=== PATIENT | female | born 2000 ===

== ENCOUNTER 2021-04-09 21:08 | Observation (INO) ==
[2021-04-09 23:12] LABS: ABS Lymphocytes 0.7 10^3/ul (1.0-4.8); ABS Monocytes 0.6 10^3/ul (0-0.8); ABS Neutrophils 12.1 10^3/ul (1.5-7.7); Eosinophil % 0.1 %; Hematocrit 40 % (35-47); Hemoglobin 13.6 g/dL (12.0-16.0); Lymphocyte % 5.3 %; Mean Corpuscular HGB Conc 34 g/dL (31-36); Mean Corpuscular Hemoglobin 30 pg (27-31); Mean Corpuscular Volume 88 fL (80-97); Mean Platelet Volume 8.3 fL (7.4-10.4); Nucleated Red Blood Cells % 0.1; Platelet Count 242 10^3/uL (150-450); Red Blood Count 4.57 10^6 /uL (3.70-4.87); Red Cell Distribution Width 14 % (10-15); White Blood Count 13.4 10^3/uL (3.5-10.8)
[2021-04-09 23:17] LABS: INR 1.04 (0.86-1.15)
[2021-04-09 23:29] LABS: ALT 8 U/L (7-52); AST 16 U/L (13-39); Albumin 4.4 g/dL (3.2-5.2); Albumin/Globulin Ratio 1.3 (1-3); Alkaline Phosphatase 90 U/L (35-149); Anion Gap 9 mmol/L (2-11); Blood Urea Nitrogen 16 mg/dL (6-24); C Reactive Protein < 1.00 mg/L (<8.01); CO2 Carbon Dioxide 22 mmol/L (22-32); Chloride 106 mmol/L (101-111); Globulin 3.3 g/dL (2-4); Glucose 133 mg/dL (70-100); Potassium 3.8 mmol/L (3.5-5.0); Sodium 137 mmol/L (135-145); Total Protein 7.7 g/dL (6.4-8.9)
[2021-04-09 23:36] LABS: HCG Pregnancy < 0.60 mIU/mL
[2021-04-10] MEDS ORDERED: cycloSPORINE Modfied 100mg CAP PO ONE ×2 (01:23)
[2021-04-10] MEDS ORDERED: cycloSPORINE Modified 25mg CAP PO ONE (01:40)
[2021-04-10] MEDS: NS 0.9% 1000 ml BAG 1,000 ML IV SCH ×2 (03:53→09:19)
[2021-04-10 04:36] LABS: Rapid COVID-19 Molecular Undetected (Undetected)
[2021-04-10 06:43] LABS: Urine Appearance Cloudy; Urine Bilirubin Negative (Negative); Urine Blood Negative (Negative); Urine Color Yellow; Urine Glucose Negative (Negative); Urine Ketones Negative (Negative); Urine Nitrite Negative (Negative); Urine Protein Negative (Negative); Urine Specific Gravity 1.028 (1.002-1.030); Urine Urobilinogen Negative (Negative)
[2021-04-10] MEDS ORDERED: cycloSPORINE Modfied 100mg CAP PO SCH (09:00)
[2021-04-10] MEDS ORDERED: methylPREDNISolone 125 mg 2 ML VIAL IV ONE (13:30)
[2021-04-10] MEDS ORDERED: diPHENhydraMINE 25 mg TAB PO PRN (13:30)
[2021-04-10] MEDS ORDERED: diPHENhydraMINE 25 mg TAB PO SCH (14:00)
[2021-04-10 16:22] VITALS: BP 105/60
== END 2021-04-10 17:45 | disposition home or self-care (01) ==
LOC: ED 21:08 → EDHOLD 04-10 03:30 → INTOOBSV 04-10 03:30 → SUATTDRO 04-10 03:30 → MED 04-10 08:37
PROVIDERS: ADMIT Internal Medicine; ATTEND Hospitalist